=== PATIENT | male | born 1955 | race Hispanic/Latino ===

== ENCOUNTER 2021-09-09 17:19 | Emergency (ER) | payer OTHER ==
[~2021-09-09] VITALS: Ht 177.8 cm; Wt 74.8 kg
[2021-09-09 18:05] LABS: APPEARANCE,URINE Clear (CLEAR); BILIRUBIN,URINE Negative (NEGATIVE); COLOR,URINE Yellow (YELLOW); GLUCOSE, URINE (UA) >=1000 mg/dL (NEGATIVE); KETONES,URINE 40 mg/dL (NEGATIVE); LEUKOCYTE ESTERASE ,URINE Negative (NEGATIVE); NITRATE,URINE Negative (NEGATIVE); OCCULT BLOOD,URINE Negative (NEGATIVE); PROTEIN,URINE POS 2+ mg/dL (NEGATIVE)
[2021-09-09 18:08] LABS: BASOPHILS % (AUTO) 0.3 % (0.0-5.0); HEMATOCRIT 52.1 % (42-54); LYMPHOCYTES % (AUTO) 7.2 % (21.0-51.0); MEAN CORPUSCULAR HEMOGLOBIN 23.9 pg (27.0-33.0); MEAN CORPUSCULAR HGB CONC 32.1 g/dL (32.0-36.0); MEAN CORPUSCULAR VOLUME 74.6 fL (79-99); MONOCYTES % (AUTO) 4.7 % (3.0-13.0); NEUTROPHILS % (AUTO) 87.5 % (40.0-77.0); PLATELET COUNT (AUTO) 287 K/uL (130-400); RED BLOOD CELL COUNT(AUTO) 6.98 MIL/uL (4.50-6.20); RED CELL DISTRIBUTION WIDTH 17.2 % (11.0-15.5); WHITE BLOOD COUNT (AUTO) 11.2 K/uL (4.8-10.8)
[2021-09-09 18:12] LABS: AMPHET/METH SCREEN,URINE NEGATIVE (NEGATIVE); BARBITURATE SCREEN, URINE NEGATIVE (NEGATIVE); BENZODIAZEPINES SCREEN,URINE NEGATIVE (NEGATIVE); CANNABINOID SCREEN,URINE NEGATIVE (NEGATIVE); COCAINE SCREEN,URINE NEGATIVE (NEGATIVE); OPIATE SCREEN,URINE NEGATIVE (NEGATIVE); PHENCYCLIDINE SCREEN,URINE NEGATIVE (NEGATIVE)
[2021-09-09 18:13] LABS: BACTERIA,URINE Few /HPF (None Seen); RBC,URINE 0-1 /HPF (0-1); SQUAMOUS EPITHELIAL CELL,UR Few /HPF (0-2); WBC,URINE 0-1 /HPF (0-1)
[2021-09-09 18:14] LABS: MUCUS,URINE Rare LPF (None Seen)
[2021-09-09 18:17] LABS: CREATININE 1.5 mg/dL (0.5-1.5); POTASSIUM 4.6 mmol/L (3.5-5.1)
[2021-09-09 18:22] LABS: ALBUMIN 4.4 g/dL (3.5-5.0); BILIRUBIN,TOTAL 0.8 mg/dL (0.2-1.0); TOTAL PROTEIN, SERUM 8.9 g/dL (6.0-8.3)
[2021-09-09] MEDS ORDERED: 0.9%NACL 1000ML 1,000 ML IV ONE ×2 (18:27→19:00)
[2021-09-09 19:03] LABS: ABG OXYGEN SATURATION 46.9 % (95.0-99.0); BASE EXCESS,VENOUS BLOOD GAS -1.6 (-2.0-3.0); HCO3,VENOUS BLOOD GAS 23.9 (21.0-28.0); PCO2,VENOUS BLOOD GAS 43 (35-48); PH,VENOUS BLOOD GAS 7.362 (7.350-7.450)
[2021-09-09] MEDS ORDERED: METF-444 PO (19:06)
[2021-09-09 19:17] VITALS: BP 145/76
== END 2021-09-09 19:57 | disposition home or self-care (01) ==
LOC: EDH 17:19
DX: E11.65 Type 2 diabetes mellitus with hyperglycemia (principal); R31.9 Hematuria, unspecified; R11.2 Nausea with vomiting, unspecified; I10 Essential (primary) hypertension; Z79.84 Long term (current) use of oral hypoglycemic drugs
CPT/HCPCS: 36415; 36600; 80053; 80305; 81001; 82010; 82803; 85025; 96360; 99283; J7030